=== PATIENT | female | born 1965 | race Caucasian/White ===

== ENCOUNTER → 2017-02-02 | Outpatient (CLI) | payer OTHER ==
[~2017-02-02] VITALS: Ht 160 cm; Wt 47.6 kg
[~2017-02-02] MED LIST: ACID REDUCER150 MG PO; AUGMENTIN875 MG PO; BLACK COHOSH40 MG PO; CALCIUM 500 MG1 EACH PO; CALCIUM PO; CHILDREN'S AL12.5 M1 PO; CORRECTOL5 M1 PO; DAILY VALUE1 EACH PO; ENDOMETRIN100 MG VG; ESTRACE0.5 MG PO; FIBER500 MG PO; FLEXERIL10 MG PO; IMODIUM MS REL1 EACH PO; MAGNESIUM250 MG PO; MIRALAX255 GM PO; MOTRIN600 MG PO; OXYCODONE HCL5 MG PO; OXYCODONE-ACET1 EACH PO; PERCOCET 5/31 TABLET PO; PREMARIN0.3 MG PO; PROBIOTIC1 EAC1 PO; PROGESTERONE100 MG PO; RANITIDINE HCL150 M1 PO; RANITIDINE HCL75 MG PO; STOOL SOFTENER100 MG PO; STOOL SOFTENER250 MG PO; ULTRACET1 TABLET PO; VITAMIN B12 PO; VITAMIN D-32000 UNI2 PO; ZOFRAN4 MG PO; ZOFRAN8 MG PO
[2017-02-02 11:17] LABS: TOTAL BILIRUBIN 0.5 mg/dL (0.0-1.0)
[2017-02-02 11:18] LABS: ALKALINE PHOSPHATASE 74 IU/L (3-129)
[2017-02-02 11:20] LABS: DIRECT BILIRUBIN 0.2 mg/dL (0.0-0.3)
== END | disposition home or self-care (01) ==
LOC: AMB 10:30
PROVIDERS: Anesthesiology
DX: K86.1 Other chronic pancreatitis (principal); K86.89 Other specified diseases of pancreas; K80.20 Calculus of gallbladder without cholecystitis without obstruction; R11.0 Nausea; B18.2 Chronic viral hepatitis C; F17.200 Nicotine dependence, unspecified, uncomplicated; F10.10 Alcohol abuse, uncomplicated; K59.09 Other constipation; R73.09 Other abnormal glucose; Z82.49 Family history of ischemic heart disease and other diseases of the circulatory system; Z82.3 Family history of stroke; Z83.79 Family history of other diseases of the digestive system; Z81.1 Family history of alcohol abuse and dependence; Z88.1 Allergy status to other antibiotic agents; Z91.041 Radiographic dye allergy status
CPT/HCPCS: 80076; C1726; J2250; J3010